=== PATIENT | male | born 1950 | race Caucasian/White ===

== ENCOUNTER 2021-05-31 09:25 | Emergency (ER) | payer MEDICARE, SELFPAY ==
[2021-05-31 09:26] VITALS: BP 121/61; PULSE 89; RESP 16; TEMP 36.6; O2SAT 100; BMI 22.8
--- NOTE | 2021-05-31 09:39 | VDLE_ITS ---
Reason For Study: Pain Procedure LEFT This is a venous duplex using B-mode, color GSV is normal. flow and spectral Doppler. CFV is compressible, spontaneous, phasic, Exam performed portable in ED. competent, and demonstrates normal A preliminary report was called and/or faxed augmentation. to [facility]. FV is compressible, spontaneous, phasic, competent and demonstrates normal augmentation. POP V is compressible, spontaneous, phasic, competent and demonstrates normal augmentation. T/P Trunk is compressible. PTV is compressible. LT PerV is compressible. VL/Venous Duplex US, Unilateral Interpretation Summary There is no evidence of left lower extremity deep vein thrombosis. Left great s aphenous vein appears patent and compressible segmentally. Ordering Physician: Raz Cheung Performed By: Tyesha Nunez RVT
--- NOTE | 2021-05-31 09:43 | ED.VIS.LOWEX ---
HPI History of Present Illness Chief Complaint: Lower Extremity Injury Narrative Narrative: Patient presents with sudden onset of left lateral thigh pain that began at 3:00 this morning, almost 7 hours ago. He denies any chest pain or shortness of breath. 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 He denies any injury to the area. He states he was at the gym yesterday and walked for 10 minutes on the treadmill. He has had hip replacement so he does not do any jogging or running. He did a chest workout yesterday. He thinks that the area may be swollen. He is concerned about a blood clot. No fevers or chills. No cough. No other symptoms. [facility] Medical History DVT (deep venous thrombosis) Home Medications hydrocodone-acetaminophen 1 tab PO Q6H PRN 3 Days #10 tab 05/31/21 [Rx Last Taken Unknown] Allergy/AdvReac Type Severity Reaction Status Date / Time amoxicillin AdvReac Other Verified 05/31/21 09:28 Social History Smoking Status: Never smoker ROS ROS ED ROS Narrative Constitutional: No fever, no chills. HEENT: No sore throat. No neck pain. No loss of vision. No rhinorrhea. Cardiovascular: No chest pain. No palpitations. No pedal edema. Respiratory: No cough, no shortness of breath. Abdominal: No abdominal pain. No nausea. No vomiting. Genitourinary: No dysuria. No hematuria. Musculoskeletal: Left lower extremity/lateral thigh pain, worse with movement. It is worse with flexion of his knee and hip. Neurologic: No headaches. No dizziness. No lightheadedness. Skin: No rash. No change in color. Psychiatric: No depression. No anxiety. EXAM Physical Exam Narrative Exam Narrative: Afebrile. Vital signs noted. HEENT: Normocephalic. Atraumatic. PERRL, EOMI. Neck soft and supple. No point tenderness or step off. Cardiovascular: Regular rate and rhythm. No murmurs, rubs, or gallops appreciated. Respiratory: No tachypnea. Lungs clear to auscultation bilaterally. Gastrointestinal: Abdomen soft, nontender, with normoactive bowel sounds. No rebound or guarding. Neurological: Awake. Alert. Nonfocal, nonlateralizing. Skin: No rash. Normal color. No pallor. Musculoskeletal: No pedal edema. Full range of motion extremities. Yet, mildly limited secondary to pain of left thigh when moving left knee/hip. Palpable dorsalis pedis pulse. Mild tenderness to palpation left lateral quadricep. Const Vital Signs: 05/31/21 09:26 Temperature 97.9 F Temperature Source Temporal Pulse Rate 89 Respiratory Rate 16 Blood Pressure 121/61 H Blood Pressure Mean 81 Pulse Ox 100 Oxygen Delivery Method Room Air MDM MDM MDM Narrative Medical decision making narrative: X-ray will be obtained of the left femur to look for any stress fracture. There is no clinical evidence of dislocation. Additionally, I will obtain an INR to make sure that his Coumadin is therapeutic. Additionally, for reassurance I will obtain an ultrasound of the left lower extremity even though his thigh pain is lateral. I do feel he may have more of a muscle spasm/strain of his left lateral quadriceps versus inflammation of his left iliotibial band. He was given 1 Bigfoot tablet for analgesia. I am hesitant to give him an anti-inflammatory secondary to his Coumadin use. His INR is therapeutic at 2.7. X-ray of the femur shows osteoarthritis of the left hip joint. DVT study is negative. Upon repeat examination he states he is feeling mildly improved. I will write him a prescription for 3 days worth of hydrocodone/acetaminophen to help with his analgesia. He was warned of the risk of nausea, vomiting, drowsiness, constipation, and addiction and acknowledges understanding. He states he is going back home to [place]. He will follow up with an orthopedic surgeon there. I feel he can be discharged safely home with follow-up. Return instructions reviewed. Disposition is discharged home in stable condition. Lab Data Attestation: I reviewed the patient's lab results. Labs: Laboratory Results - last 24 hr 05/31/21 09:46 PT 27.6 H INR 2.7 Radiography Diagnostic Testing: Clinical Impression(s) from Imaging Studies Femur X-Ray 05/31/21 09:50 IMPRESSION: Osteoarthritis of the left hip joint. Electronically Signed: Jerman Mario MD at 10:14 EST , Discharge Plan Triage Chief Complaint: Lower Extremity Injury ED Provider: Raz Cheung Dx/Rx/DC Orders Clinical Impression: Osteoarthritis of left hip, Acute pain of left thigh, Iliotibial band syndrome of left side Instructions: Iliotibial Band Friction Syndrome, ED Myalgias, ED Osteoarthritis, ED Muscle Strain, Extremity Prescriptions: New hydrocodone-acetaminophen 5-325 mg tablet 1 tab PO Q6H PRN (Reason: pain) 3 Days Qty: 10 RF: 0 Primary Care Provider: [facility] Doctor,Out of Referrals: [facility] Doctor,Out of [Primary Care Provider] - Disposition Disposition: Home, Self Care
--- NOTE | 2021-05-31 09:50 | RAD_ITS ---
STUDY: X-RAY - LEFT FEMUR REASON FOR STUDY: Male, 70 years old. Pain TECHNIQUE: 4 view(s) of the femur. COMPARISON: None. FINDINGS: Normal visualized femur. There is moderate degree of joint space narrowing of the left hip joint. Normal visualized soft tissue structure. RAD/Femur Min 2 Views IMPRESSION: Osteoarthritis of the left hip joint. Electronically Signed: Jerman Mario MD at 10:14 EST ,
[2021-05-31 09:59] LABS: International Normalized Ratio 2.7; Prothrombin Time (Protime)PT. 27.6 SECONDS (11.7-14.9)
[2021-05-31] MEDS: HYDROcodone Bitartrate/Apap 5/325 Tablet PO (10:01)
== END 2021-05-31 11:20 | disposition home or self-care (01) ==
PROVIDERS: Emergency Provider Emergency Medicine; Visit Provider Emergency Medicine
DX: M16.12 Unilateral primary osteoarthritis, left hip (principal); M79.652 Pain in left thigh; M76.32 Iliotibial band syndrome, left leg; Z96.649 Presence of unspecified artificial hip joint; Z86.718 Personal history of other venous thrombosis and embolism
CPT/HCPCS: 73552; 85610; 93971; 99283